=== PATIENT | female | born 1980 | race Hispanic/Latino ===

== ENCOUNTER 2018-06-03 10:50 | Outpatient (CLI) | payer OTHER ==
--- NOTE | 2018-06-03 12:29 | RAD ---
PA AND LATERAL VIEWS CHEST: HISTORY: Bronchitis. COMPARISON: Comparison is made with the exam of 06/07/2016. FINDINGS: The heart size is normal. The lungs are expanded without lobar consolidation, pneumothoraces, or ple ural effusions. Mild degenerative changes are present. IMPRESSION: No radiographic evidence of acute cardiopulmonary process. POS: OFF
== END 2018-06-03 10:51 | disposition home or self-care (01) ==
LOC: BICRAD 10:50
PROVIDERS: ATTEND Family Medicine
DX: J40 Bronchitis, not specified as acute or chronic (principal)
CPT/HCPCS: 71046

== ENCOUNTER 2019-02-28 11:06 | Inpatient (IN) | payer SELFPAY ==
[2019-02-28] MEDS ORDERED: Ketorolac Tromethamine 30 MG/ML VIAL ONE (11:48)
[2019-02-28] MEDS ORDERED: Acetaminophen 500 MG TAB ONE (11:48)
[2019-02-28] MEDS ORDERED: Ondansetron PF 4 MG/2 ML Vial ONE (11:48)
[2019-02-28] MEDS ORDERED: cefTRIAXone\\ROCEPHIN 2 GM VIAL ONE (11:48)
[2019-02-28 11:53] LABS: #Lymphocytes 1.6 thou/uL (1.20-3.40); #Monocytes 1.1 thou/uL (0.11-0.59); #Neutrophils 15.9 thou/uL (1.40-6.50); %Basophils 0.2 % (0.0-1.0); %Eosinophils 0.1 % (0.0-10.0); %Lymphocytes 8.5 % (21.0-51.0); %Monocytes 5.9 % (0.0-10.0); %Neutrophils 85.3 % (42.0-75.0); Hemoglobin 14.5 g/dL (12.0-16.0); Mean Corpuscular HGB CONC 34.4 g/dL (32.0-36.0); Mean Corpuscular Hemoglobin 30.5 pg (27.0-31.0); Mean Corpuscular Volume 88.9 fL (78.0-98.0); Mean Platelet Volume 7.7 fL (7.4-10.4); Platelet Count 311 thou/uL (130-400); RBC Distribution Width 11.5 % (11.5-14.5); Red Blood Cell (RBC) Count 4.75 mill/uL (4.20-5.40); White Blood Cell (WBC) Count 18.6 thou/uL (4.8-10.8)
[2019-02-28 12:06] LABS: BHCG - Serum Negative (NEGATIVE); Pregs Control Background? CLEAR/WHITE (CLR/WHITE); Pregs Control Bar Appear? YES (CONTROL BAR)
[2019-02-28 12:07] LABS: Bilirubin Negative (Negative); Blood, Urine Moderate (Negative); Glucose, Urine (Dipstick) Negative (Negative); Leukocyte Large (Negative); Nitrite Positive (Negative); Protein, Urine (Dipstick) 100 mg/dL (Neg-Trace); Urobilinogen 0.2 mg/dL (Less than 2)
[2019-02-28 12:10] LABS: Clarity Turbid (Clear)
[2019-02-28 12:16] LABS: Bacteria/HPF 4+ HPF (None Seen); Transitional Epithelial 0-3 HPF (None Seen); WBC/HPF Greater Than 50 HPF (0-3)
[2019-02-28 12:22] LABS: ALT (SGPT) 54 U/L (8-55); AST (SGOT) 29 U/L (5-34); Albumin 4.3 g/dL (3.5-5.0); Alkaline Phosphatase 98 U/L (40-110); Anion Gap 14 mmol/L (10-20); BUN (Urea Nitrogen) 12 mg/dL (7.0-18.7); CK (CPK) 74 U/L (29-168); Calc. Creatinine Clearance 0 mL/min (70-130); Calcium 9.3 mg/dL (7.8-10.44); Carbon Dioxide 23 mmol/L (22-29); Chloride 103 mmol/L (98-107); Estimated GFR-MDRD Greater than 90; Globulin 4.2 g/dL (2.4-3.5); Glucose 115 mg/dL (70-105); Lipase 9 U/L (8-78); Potassium 3.6 mmol/L (3.5-5.1); Protein, Total 8.5 g/dL (6.0-8.3); Sodium 136 mmol/L (136-145)
--- NOTE | 2019-02-28 12:30 | CT ---
CT abdomen and pelvis without IV contrast. Oral contrast was not administered. INDICATIONS: Abdominal pain. Left flank pain. COMPARISON: None FINDINGS: Lung bases are clear Liver, spleen, and pancreas appear unremarkable. Gallbladder is mildly distended. No pericholecystic edema. Gallstones may not be apparent on CT. Stomach and duodenum appear unremarkable. Adrenal glands appear normal. There is mild fullness of the left collecting structures. There is a tiny nonobstructing calculus in mid pole collecting structures on the left measuring 2 to 3 mm. No evidence of ureteral calculus. No calculus seen in the bladder. Findings may represent a recently passed calculus from the left side . Right kidney and right collecting structures unremarkable. Urinary bladder unremarkable. Small bowel loops are normal caliber and exhibit normal fold pattern. Appendix is identified and appears unremarkable. Colon is unremarkable. Aorta is normal caliber. No evidence of retroperitoneal or mesenteric adenopathy. Pelvic structures appear unremarkable. Subcutaneous tissues, abdominal wall, and muscular structures appear unremarkable. Osseous structures appear unremarkable. IMPRESSION: 1. Mild fullness of the left collecting structures however no evidence of ureteral calculus identifie d. Possibly recently passed calculus from the left side. 2. Tiny nonobstructing calculus from the mid pole collecting structures on the left. 3. Mildly distended gallbladder.
[2019-02-28 13:48] LABS: Amphetamine Not Detected (NotDetected); Barbiturates Screen Not Detected (NotDetected); Benzodiazepine Screen Not Detected (NotDetected); Cocaine Metabolite Screen Not Detected (NotDetected); Medtox Reader # READER 4; Methadone Not Detected (NotDetected); Methamphetamine Not Detected (NotDetected); Opiate Screen Not Detected (NotDetected); Oxycodone Screen Not Detected (NotDetected); Phencyclidine (PCP) Not Detected (NotDetected); THC/Cannabinoid Screen Not Detected (NotDetected); Tricyclic Screen Not Detected (NotDetected)
[2019-02-28 13:49] LABS: Medtox Control Line Valid? VALID (VALID)
[2019-02-28] MEDS ORDERED: Guaifenesin DM 100-10/5 ML UDCUP PO PRN (14:49)
[2019-02-28] MEDS ORDERED: Bisacodyl 10 MG SUPP PR PRN (14:49)
[2019-02-28] MEDS ORDERED: Senokot S 8.6-50 MG TAB PO PRN (14:49)
[2019-02-28] MEDS: Acetaminophen 325 MG TAB PO PRN ×2 (15:32→20:16)
[2019-02-28] MEDS: Sodium Chloride 0.9% 1,000 ML IV SCH ×2 (15:40→20:15)
[2019-02-28 16:05] VITALS: BMI 36.6
--- NOTE | 2019-02-28 16:24 | HP ---
REASON FOR ADMISSION: Sepsis, pyelonephritis. HISTORY OF PRESENTING ILLNESS: The patient gives history of having pain all over. This started last evening. She also had fever and could not sleep last night. She has been having frequent urination and it is painful to urinate as well. She developed fever, cold, and chills as well overnight. No prior history of bladder infections in the past. No complaints of chest pain, palpitation, PND, or orthopnea. No complaints of cough or expectoration. She has known history of asthma, but has not had any wheezing overnight. PAST MEDICAL AND SURGICAL HISTORY: History of asthma, which is very stable with no inhalers on a regular basis. She has given to 3 children. CURRENT MEDICATION: Tylenol, Aleve p.r.n. for muscular aches. ALLERGIES: ALLERGIC TO PENICILLIN. PERSONAL HISTORY: Does not abuse alcohol or drugs. No history of smoking. FAMILY HISTORY: Both parents are living. Mother is healthy. Father has had history of sarcoma in his left axillary area for which he has had two surgeries and is apparently in remission per the patient. She lives with her . CODE STATUS: Full. Power of attorney lawyer is her . REVIEW OF SYSTEMS: CONSTITUTIONAL: Negative for weight loss or gain, ability to conduct usual activities. SKIN: Negative for rash, itching. EYES: Negative for double vision, pain. ENT/MOUTH: Negative for nose bleeding, neck stiffness, pain, tenderness. CARDIOVASCULAR: Negative for palpitations, dyspnea on exertion, orthopnea. RESPIRATORY: Negative for shortness of breath, wheezing, cough, hemoptysis, fever or night sweats. GASTROINTESTINAL: Negative for poor appetite, abdominal pain, heartburn, nausea , vomiting, constipation, or diarrhea. GENITOURINARY: Negative for urgency, frequency, dysuria, nocturia. MUSCULOSKELETAL: Negative for pain, swelling. NEUROLOGIC/PSYCHIATRIC: Negative for anxiety, depression. ALLERGY/IMMUNOLOGIC: Negative for skin rash, bleeding tendency. PHYSICAL EXAMINATION: GENERAL: The patient is a 38-year-old female who is currently not in any acute distress. VITAL SIGNS: Blood pressure 121/94, pulse 140 per minute, respiratory rate 20 per minute, temperature 99.8 degrees Fahrenheit, saturating 96% on room air. NECK: Supple. No elevated JVD. HEENT: Eyes; extraocular muscles intact. Pupils reacting to light. Oral cavity, mucous membranes are dry. No exudates or congestion. CARDIOVASCULAR SYSTEM: S1 and S2 heard. Regular rhythm. Tachycardic. RESPIRATORY SYSTEM: Air entry 1+ bilateral. No rales or rhonchi. ABDOMEN: Soft. Bowel sounds heard. There is left CV angle tenderness. No rigidity or guarding. EXTREMITIES: No peripheral edema or calf tenderness. VASCULAR SYSTEM: Peripheral pulses 2+ bilateral. No ischemic ulcerations or gangrene. CENTRAL NERVOUS SYSTEM: No gross focal deficits noted. The patient is alert, awake, and oriented well. PSYCHIATRIC SYSTEM: The patient's mood is euthymic. No hallucinations or delusions. LABORATORY DATA: CT abdomen and pelvis without IV contrast done shows fullness of left collecting structures, however, there is no evidence of ureteral calculus, likely the patient might have passed a calculus on the left side. There is tiny nonobstructing calculus from the mid pole collecting structures on the left. Mildly distended gallbladder. No pericholecystic fluid was seen. UA is strongly positive for UTI. Urine drug screen is negative. Serum test is negative. BUN 12, creatinine 0.7, serum glucose 115. Liver enzymes within normal limits. Total bilirubin 1.0. Albumin is 4.3. Lipase 9. White count of 18, H and H of 14 and 42, platelet count 311 with 85% neutrophils. CLINICAL IMPRESSION AND PLAN: The patient will be admitted to medical floor for sepsis, left-sided pyelonephritis with urinary tract infection. It is unclear if the patient passed stone. No prior history of ureteric colic or passing stone in the past. Blood and urine cultures have been obtained in the ER. We will place her on ceftriaxone 1 g IV daily along with normal saline at 100 mL/hr. The patient has received 30 mL/kg sepsis protocol IV fluid resuscitation in the ER. Motrin p.r.n. for pain. Morphine p.r.n. for pain. We will obtain an echo with 2D Doppler in view of persistent tachycardia despite fluid resuscitation, likely due to current sepsis. We will closely monitor this. The patient also weighs nearly 85 kg and likely has obesity. We will await urine cultures for definitive placement of antibiotics. Job ID: [id number] [facility]
[2019-02-28] MEDS: Ibuprofen 600 MG TAB PO PRN (17:24)
[2019-02-28] MEDS: Morphine 2 MG/ML SYRINGE SLOW IVP PRN ×2 (18:32→22:25)
[2019-02-28] MEDS: Famotidine 20 MG TAB PO SCH (20:16)
[2019-03-01] MEDS: Acetaminophen 325 MG TAB PO PRN ×3 (01:43→13:57)
[2019-03-01] MEDS: Morphine 2 MG/ML SYRINGE SLOW IVP PRN ×2 (01:44→18:02)
[2019-03-01 06:10] LABS: Anion Gap 10 mmol/L (10-20); BUN (Urea Nitrogen) 7 mg/dL (7.0-18.7); Calc. Creatinine Clearance 190 mL/min (70-130); Calcium 8.5 mg/dL (7.8-10.44); Carbon Dioxide 25 mmol/L (22-29); Chloride 106 mmol/L (98-107); Estimated GFR-MDRD Greater than 90; Glucose 115 mg/dL (70-105); Potassium 3.7 mmol/L (3.5-5.1); Sodium 137 mmol/L (136-145)
[2019-03-01 06:24] LABS: Band 3 % (5-11); Lymphocytes 12 % (21-51); MDiff Complete? YES; Mean Corpuscular Hemoglobin 30.7 pg (27.0-31.0); Mean Corpuscular Volume 90.3 fL (78.0-98.0); Mean Platelet Volume 7.9 fL (7.4-10.4); Monocytes 8 % (0-10); Neutrophil 76 % (42-75); Platelet Count 259 thou/uL (130-400); Platelet Morphology Comment Appears Adequate; RBC Distribution Width 11.5 % (11.5-14.5); RBC Morphology Normal; Reactive Lymphocytes 1 % (0-10); Red Blood Cell (RBC) Count 4.23 mill/uL (4.20-5.40); White Blood Cell (WBC) Count 21.9 thou/uL (4.8-10.8)
[2019-03-01] MEDS: Enoxaparin Sodium 40 MG/0.4 ML SYRINGE SC SCH (08:18)
[2019-03-01] MEDS: Famotidine 20 MG TAB PO SCH ×2 (08:19→19:46)
[2019-03-01] MEDS ORDERED: FLU VACC QS2019-20(6MOS UP)/PF 60 MCG/0.5 ML SYRINGE IM ONE (09:00)
[2019-03-01] MEDS: Ibuprofen 600 MG TAB PO PRN ×2 (09:51→19:43)
[2019-03-01] MEDS ORDERED: ISOVUE-370 76%-LOCM 1 ML ONE (09:59)
[2019-03-01] MEDS ORDERED: cefTRIAXone\\ROCEPHIN 1 GM in Sodium Chloride 0.9% 100 ML IVPB SCH (12:00)
[2019-03-01] MEDS: Sodium Chloride 0.9% 1,000 ML IV SCH ×2 (12:03→19:44)
--- NOTE | 2019-03-01 13:50 | PDOC.HOSPP ---
- Subjective Encounter Date: 03/01/19 Encounter Time: 08:00 Subjective: still has left cva angle tenderness, but overall feels better this am is amb in hallway per patient no chest pain, has palp and headache - Objective Vital Signs & Weight: Vital Signs (12 hours) Temp Pulse Resp BP BP Pulse Ox 03/01/19 11:49 97.5 F L 106 H 20 121/83 96 03/01/19 08:19 94 L 03/01/19 08:00 101.1 F H 121 H 22 H 124/86 94 L 03/01/19 04:00 98.4 F 121 H 24 H 124/83 92 L Weight Weight 213 lb 9.6 oz I&O: 02/28/19 03/01/19 03/02/19 06:59 06:59 06:59 Intake Total 2013 Balance 2013 Result Diagrams: 03/01/19 05:10 03/01/19 05:10 Hospitalist ROS - Medication Medications: Active Medications Generic Name Dose Route Start Last Admin Trade Name Freq PRN Reason Stop Dose Admin Acetaminophen 650 mg 02/28/19 14:49 03/01/19 08:18 Tylenol PO 650 mg Q4H PRN Administration Headache/Fever/Mild Pain (1-3) Enoxaparin Sodium 40 mg 03/01/19 09:00 03/01/19 08:18 Lovenox SC 40 mg 0900 LEVY Administration Famotidine 20 mg 02/28/19 21:00 03/01/19 08:19 Pepcid PO 20 mg BID LEVY Administration Sodium Chloride 1,000 mls @ 100 mls/hr 02/28/19 14:49 03/01/19 12:03 Normal Saline 0.9% IV 1,000 mls .Q10H LEVY Administration Ibuprofen 600 mg 02/28/19 14:50 03/01/19 09:51 Motrin PO 600 mg Q8H PRN Administration Pain Morphine Sulfate 2 mg 02/28/19 14:50 03/01/19 01:44 Morphine SLOW IVP 2 mg Q4H PRN Administration Pain Sodium Chloride 10 ml 03/01/19 09:00 03/01/19 12:02 Flush - Normal Saline IVF Not Given Q12HR LEVY - Exam General Appearance: NAD, awake alert Eye: anicteric sclera ENT: no oropharyngeal lesions, moist mucosa Neck: supple, no JVD Heart: no murmur, no gallops Heart - other findings: tachy+ Respiratory: no wheezes, no rales, rhonchi Gastrointestinal: soft, non-distended, normal bowel sounds, no guarding, no rigidity Gastrointestinal - other findings: left cva angle tenderness Extremities: no cyanosis, no edema Neurological: cranial nerve grossly intact, no focal deficits Psychiatric: normal affect, A&O x 3 Hosp A/P (1) Sepsis Code(s): A41.9 - SEPSIS, UNSPECIFIED ORGANISM Status: Acute Qualifiers: Sepsis type: Escherichia coli (2) E coli bacteremia Code(s): R78.81 - BACTEREMIA Status: Acute (3) Pyelonephritis of left kidney Code(s): N12 - TUBULO-INTERSTITIAL NEPHRITIS, NOT SPCF ACUTE OR CHRONIC Status: Acute (4) Obesity (BMI 30-39.9) Code(s): E66.9 - OBESITY, UNSPECIFIED Status: Chronic - Plan is on meropenem, await full culture results wbc is still climbing up recieved full fluid resuscitation for sepsis and is currently at 100mls/hr echo for lv function, persistent tachy (likely due to sepsis), CTA to r/o PE hemostable otherwise to amb in hallway as tolerated gave full updates to and patient at bedside
[2019-03-01] MEDS: MEROPENEM 1 GM/50 ML 1 GM in Premix Bag 1 BAG IVPB SCH ×2 (13:58→21:26)
--- NOTE | 2019-03-01 15:11 | CT ---
CT ANGIOGRAM THORAX WITH CONTRAST: (CTA pulmonary angiogram) DATE: 03/01/2019 HISTORY: 38-year-old female with dyspnea TECHNIQUE: IV injection of iodinated contrast. Scan acquisition timing attempted to coincide with iodinated contrast bolus reaching maximal density in pulmonary arteries. 3-D MIP reconstructions. FINDINGS: Pulmonary thromboembolism: None. Lungs: Clear. Pneumothorax: None. Pleural effusion: None. Thoracic aorta: No aneurysm or dissection. Mediastinum: No lymphadenopathy or other mass. [place]: No lymphadenopathy or other mass. IMPRESSION: Normal.
[2019-03-01] MEDS: Ketorolac Tromethamine 30 MG/ML VIAL IVP PRN (21:26)
[2019-03-02] MEDS: Sodium Chloride 0.9% 1,000 ML IV SCH ×2 (05:37→18:20)
[2019-03-02 05:38] LABS: #Eosinphils 0.1 thou/uL (0.0-0.7); #Lymphocytes 2.4 thou/uL (1.20-3.40); #Monocytes 1.8 thou/uL (0.11-0.59); #Neutrophils 14.8 thou/uL (1.40-6.50); %Basophils 0.1 % (0.0-1.0); %Eosinophils 0.3 % (0.0-10.0); %Lymphocytes 12.6 % (21.0-51.0); %Monocytes 9.6 % (0.0-10.0); %Neutrophils 77.4 % (42.0-75.0); Mean Corpuscular HGB CONC 34.2 g/dL (32.0-36.0); Mean Corpuscular Hemoglobin 30.7 pg (27.0-31.0); Mean Platelet Volume 7.9 fL (7.4-10.4); Platelet Count 265 thou/uL (130-400); RBC Distribution Width 11.4 % (11.5-14.5); Red Blood Cell (RBC) Count 4.24 mill/uL (4.20-5.40); White Blood Cell (WBC) Count 19.1 thou/uL (4.8-10.8)
[2019-03-02] MEDS: MEROPENEM 1 GM/50 ML 1 GM in Premix Bag 1 BAG IVPB SCH (05:38)
[2019-03-02 05:59] LABS: Anion Gap 11 mmol/L (10-20); BUN (Urea Nitrogen) 7 mg/dL (7.0-18.7); Calc. Creatinine Clearance 187 mL/min (70-130); Calcium 8.8 mg/dL (7.8-10.44); Carbon Dioxide 24 mmol/L (22-29); Chloride 106 mmol/L (98-107); Estimated GFR-MDRD Greater than 90; Glucose 97 mg/dL (70-105); Potassium 3.6 mmol/L (3.5-5.1); Sodium 137 mmol/L (136-145)
[2019-03-02] MEDS: Famotidine 20 MG TAB PO SCH ×2 (08:56→20:24)
[2019-03-02] MEDS: Enoxaparin Sodium 40 MG/0.4 ML SYRINGE SC SCH (08:56)
[2019-03-02] MEDS: Ketorolac Tromethamine 30 MG/ML VIAL IVP PRN ×2 (11:27→22:06)
[2019-03-02] MEDS: Acetaminophen 325 MG TAB PO PRN (11:27)
--- NOTE | 2019-03-02 12:26 | PDOC.HOSPP ---
- Subjective Encounter Date: 03/02/19 Encounter Time: 12:24 Subjective: Patient seen and examined for Sepsis. Left flank pain +. No new complaints. No overnight events - Objective Vital Signs & Weight: Vital Signs (12 hours) Temp Pulse Resp BP Pulse Ox 03/02/19 12:20 98.4 F 107 H 16 120/81 95 03/02/19 07:24 98.4 F 98 20 133/85 94 L 03/02/19 04:10 98.5 F 96 16 123/81 96 Weight Weight 213 lb 9.6 oz I&O: 03/01/19 03/02/19 03/03/19 06:59 06:59 06:59 Intake Total 2013 1200 Balance 2013 1200 Result Diagrams: 03/02/19 05:14 03/02/19 05:14 Radiology Reviewed by me: Yes (CTA - neg) Hospitalist ROS - Review of Systems Respiratory: denies: cough, dry, shortness of breath, hemoptysis, SOB with excertion, pleuritic pain, sputum, wheezing, other Cardiovascular: denies: chest pain, palpitations, orthopnea, paroxysmal noc. dyspnea, edema, light headedness, other - Medication Medications: Active Medications Generic Name Dose Route Start Last Admin Trade Name Freq PRN Reason Stop Dose Admin Acetaminophen 650 mg 02/28/19 14:49 03/02/19 11:27 Tylenol PO 650 mg Q4H PRN Administration Headache/Fever/Mild Pain (1-3) Enoxaparin Sodium 40 mg 03/01/19 09:00 03/02/19 08:56 Lovenox SC 40 mg 0900 LEVY Administration Famotidine 20 mg 02/28/19 21:00 03/02/19 08:56 Pepcid PO 20 mg BID LEVY Administration Sodium Chloride 1,000 mls @ 100 mls/hr 02/28/19 14:49 03/02/19 05:37 Normal Saline 0.9% IV 1,000 mls .Q10H LEVY Administration Ibuprofen 600 mg 02/28/19 14:50 03/01/19 19:43 Motrin PO 600 mg Q8H PRN Administration Pain Ketorolac Tromethamine 30 mg 03/01/19 21:22 03/02/19 11:27 Toradol IVP 03/06/19 21:23 30 mg Q12H PRN Administration Pain Morphine Sulfate 2 mg 02/28/19 14:50 03/01/19 18:02 Morphine SLOW IVP 2 mg Q4H PRN Administration Pain Senna/Docusate Sodium 2 tab 02/28/19 14:49 03/02/19 05:37 Senokot S PO 2 tab BIDPRN PRN Administration Constipation Sodium Chloride 10 ml 03/01/19 09:00 03/02/19 11:09 Flush - Normal Saline IVF Not Given Q12HR LEVY Sodium Chloride 10 ml 03/01/19 08:58 03/01/19 18:03 Flush - Normal Saline IVF 10 ml PRN PRN Administration Saline Flush - Exam General Appearance: NAD Neck: supple, no JVD Heart: RRR, no gallops Respiratory: CTAB, no wheezes, no rales Gastrointestinal: soft, non-distended, normal bowel sounds Gastrointestinal - other findings: Left CVA tenderness Hosp A/P - Plan DVT proph w/lovenox, DVT proph w/SCDs Severe Sepsis due to Ecoli Pyelonephritis with bacteremia Obesity BMI 36.7 Renal calculi Sinus tachycardia due to #1 PLAN: Change Meropenem to IV Ceftriaxone AM labs Cont IVF Cont other meds
[2019-03-02] MEDS: cefTRIAXone\\ROCEPHIN 2 GM in Sodium Chloride 0.9% 100 ML IVPB SCH (13:06)
[2019-03-02] MEDS: Ibuprofen 600 MG TAB PO PRN (16:25)
[2019-03-02] MEDS: Morphine 2 MG/ML SYRINGE SLOW IVP PRN (20:24)
[2019-03-02] MEDS ORDERED: Ketorolac Tromethamine 30 MG/ML VIAL IVP PRN (20:55)
[2019-03-03] MEDS: Sodium Chloride 0.9% 1,000 ML IV SCH ×2 (03:47→14:45)
[2019-03-03] MEDS: Ketorolac Tromethamine 30 MG/ML VIAL IVP PRN ×3 (05:22→16:52)
[2019-03-03 06:08] LABS: #Basophils 0.1 thou/uL (0.0-0.2); #Eosinphils 0.1 thou/uL (0.0-0.7); #Lymphocytes 2.3 thou/uL (1.20-3.40); #Monocytes 0.9 thou/uL (0.11-0.59); #Neutrophils 8.7 thou/uL (1.40-6.50); %Basophils 0.6 % (0.0-1.0); %Eosinophils 0.7 % (0.0-10.0); %Lymphocytes 19.2 % (21.0-51.0); %Monocytes 7.1 % (0.0-10.0); %Neutrophils 72.3 % (42.0-75.0); Hemoglobin 13.1 g/dL (12.0-16.0); Mean Corpuscular HGB CONC 32.2 g/dL (32.0-36.0); Mean Corpuscular Hemoglobin 28.7 pg (27.0-31.0); Mean Platelet Volume 7.9 fL (7.4-10.4); Platelet Count 328 thou/uL (130-400); RBC Distribution Width 11.3 % (11.5-14.5); Red Blood Cell (RBC) Count 4.56 mill/uL (4.20-5.40)
[2019-03-03 06:28] LABS: ALT (SGPT) 31 U/L (8-55); AST (SGOT) 21 U/L (5-34); Albumin 3.7 g/dL (3.5-5.0); Alkaline Phosphatase 90 U/L (40-110); Anion Gap 13 mmol/L (10-20); BUN (Urea Nitrogen) 8 mg/dL (7.0-18.7); Bilirubin, Total 0.2 mg/dL (0.2-1.2); Calc. Creatinine Clearance 179 mL/min (70-130); Calcium 8.9 mg/dL (7.8-10.44); Carbon Dioxide 20 mmol/L (22-29); Chloride 109 mmol/L (98-107); Estimated GFR-MDRD Greater than 90; Globulin 3.9 g/dL (2.4-3.5); Glucose 96 mg/dL (70-105); Potassium 3.8 mmol/L (3.5-5.1); Protein, Total 7.6 g/dL (6.0-8.3); Sodium 138 mmol/L (136-145)
[2019-03-03] MEDS: Saccharomyces boulardii 250 MG CAP PO SCH (10:11)
[2019-03-03] MEDS: Enoxaparin Sodium 40 MG/0.4 ML SYRINGE SC SCH (10:11)
[2019-03-03] MEDS: Famotidine 20 MG TAB PO SCH ×2 (10:11→19:39)
--- NOTE | 2019-03-03 10:52 | PDOC.HOSPP ---
- Subjective Encounter Date: 03/03/19 Encounter Time: 10:50 Subjective: Patient seen and examined for Sepsis. Flank pain improving. Afebrile. No new complaints. No overnight events - Objective Vital Signs & Weight: Vital Signs (12 hours) Temp Pulse Resp BP BP Pulse Ox 03/03/19 07:54 98.1 F 104 H 18 125/86 95 03/03/19 05:40 98.1 F 100 20 134/87 96 03/03/19 00:00 97.9 F 98 18 132/79 97 Weight Weight 213 lb 9.6 oz I&O: 03/02/19 03/03/19 03/04/19 06:59 06:59 06:59 Intake Total 1200 1944 Balance 1200 1944 Result Diagrams: 03/03/19 05:33 03/03/19 05:33 Additional Labs: Microbiology 02/28/19 11:40 Venous blood - Left Hand Blood Culture - Final Escherichia coli 02/28/19 11:40 Urine clean catch Urine Culture - Final Escherichia coli Hospitalist ROS - Review of Systems Respiratory: denies: cough, dry, shortness of breath, hemoptysis, SOB with excertion, pleuritic pain, sputum, wheezing, other Cardiovascular: denies: chest pain, palpitations, orthopnea, paroxysmal noc. dyspnea, edema, light headedness, other - Medication Medications: Active Medications Generic Name Dose Route Start Last Admin Trade Name Freq PRN Reason Stop Dose Admin Acetaminophen 650 mg 02/28/19 14:49 03/02/19 11:27 Tylenol PO 650 mg Q4H PRN Administration Headache/Fever/Mild Pain (1-3) Enoxaparin Sodium 40 mg 03/01/19 09:00 03/03/19 10:11 Lovenox SC 40 mg 0900 LEVY Administration Famotidine 20 mg 02/28/19 21:00 03/03/19 10:11 Pepcid PO 20 mg BID LEVY Administration Sodium Chloride 1,000 mls @ 100 mls/hr 02/28/19 14:49 03/03/19 03:47 Normal Saline 0.9% IV 03/03/19 20:00 Not Given .Q10H LEVY Ceftriaxone Sodium 2 gm/ 100 mls @ 200 mls/hr 03/02/19 13:00 03/02/19 13:06 Sodium Chloride IVPB 100 mls Q24HR LEVY Administration Ibuprofen 600 mg 02/28/19 14:50 03/02/19 16:25 Motrin PO 600 mg Q8H PRN Administration Pain Ketorolac Tromethamine 15 mg 03/02/19 21:00 03/03/19 10:15 Toradol IVP 03/07/19 20:56 15 mg Q6H PRN Administration Pain Morphine Sulfate 2 mg 02/28/19 14:50 03/02/19 20:24 Morphine SLOW IVP 2 mg Q4H PRN Administration Pain Saccharomyces Boulardii 250 mg 03/03/19 09:00 03/03/19 10:11 Florastor PO 250 mg DAILY LEVY Administration Senna/Docusate Sodium 2 tab 02/28/19 14:49 03/02/19 05:37 Senokot S PO 2 tab BIDPRN PRN Administration Constipation Sodium Chloride 10 ml 03/01/19 09:00 03/02/19 20:24 Flush - Normal Saline IVF 10 ml Q12HR LEVY Administration Sodium Chloride 10 ml 03/01/19 08:58 03/01/19 18:03 Flush - Normal Saline IVF 10 ml PRN PRN Administration Saline Flush - Exam General Appearance: NAD Neck: supple, no JVD Heart: RRR, no gallops Respiratory: CTAB, no rales Gastrointestinal: soft, non-tender, normal bowel sounds, tender to palpation ( left flank) Extremities: no edema Hosp A/P - Plan DVT proph w/SCDs Severe Sepsis due to Ecoli Pyelonephritis with bacteremia Obesity BMI 36.7 Renal calculi Sinus tachycardia due to #1 PLAN: Cont IV Ceftriaxone CBC in AM DC home in AM if WBC is normal DC IVF after this bag Cont other meds
[2019-03-03] MEDS: cefTRIAXone\\ROCEPHIN 2 GM in Sodium Chloride 0.9% 100 ML IVPB SCH (13:21)
[2019-03-03] MEDS: Acetaminophen 325 MG TAB PO PRN (22:37)
[2019-03-04] MEDS: Acetaminophen 325 MG TAB PO PRN ×2 (06:00→13:55)
[2019-03-04 06:31] LABS: #Basophils 0.1 thou/uL (0.0-0.2); #Eosinphils 0.2 thou/uL (0.0-0.7); #Lymphocytes 2.8 thou/uL (1.20-3.40); #Neutrophils 7.5 thou/uL (1.40-6.50); %Basophils 0.6 % (0.0-1.0); %Eosinophils 2.1 % (0.0-10.0); %Lymphocytes 24.2 % (21.0-51.0); %Monocytes 8.9 % (0.0-10.0); %Neutrophils 64.2 % (42.0-75.0); Hemoglobin 13.7 g/dL (12.0-16.0); Mean Corpuscular HGB CONC 33.3 g/dL (32.0-36.0); Mean Corpuscular Hemoglobin 30.3 pg (27.0-31.0); Mean Platelet Volume 8.2 fL (7.4-10.4); Platelet Count 329 thou/uL (130-400); RBC Distribution Width 11.5 % (11.5-14.5); Red Blood Cell (RBC) Count 4.54 mill/uL (4.20-5.40); White Blood Cell (WBC) Count 11.6 thou/uL (4.8-10.8)
[2019-03-04 07:46] VITALS: BP 122/79; TEMP 97.8
[2019-03-04] MEDS: Saccharomyces boulardii 250 MG CAP PO SCH (09:48)
[2019-03-04] MEDS: Famotidine 20 MG TAB PO SCH (09:48)
[2019-03-04] MEDS: cefTRIAXone\\ROCEPHIN 2 GM in Sodium Chloride 0.9% 100 ML IVPB SCH (13:04)
[2019-03-04] MEDS ORDERED: Ciprofloxacin 500 MG TAB PO SCH ×2 (14:30→20:00)
--- NOTE | 2019-03-05 02:34 | DIS ---
DATE OF ADMISSION: 02/28/2019 DATE OF DISCHARGE: 03/04/2019 PRIMARY CARE PROVIDER: Dr. Jodi Tavares. DISCHARGE DIAGNOSES: 1. Severe sepsis. 2. Severe sepsis secondary to E coli pyelonephritis with bacteremia. 3. Nephrolithiasis. CONDITION OF PATIENT ON THE DAY OF DISCHARGE: Stable. I assessed Ms. Sung on the day of discharge. She denies any chest pain or shortness of breath. Vital signs are stable. S1 and S2 are heard, regular. Lungs are clear to auscultation bilaterally. POST-DISCHARGE FOLLOWUP: The patient is advised to follow up with primary care provider in 3 days' time. DISCHARGE MEDICATIONS: 1. Ciprofloxacin 500 mg 2 times a day for 7 more days. 2. Acetaminophen p.r.n. 3. Naproxen p.r.n. HOSPITAL COURSE: Ms. Sung is a pleasant 38-year-old lady who was admitted to [facility] for severe sepsis secondary to pyelonephritis on 02/28/2019. She was also tachycardic at the time of admission. She underwent CT angiogram of the chest, which did not show any evidence of pulmonary embolism. CT scan of the abdomen and pelvis done at the time of admission showed mild fullness of the left collecting structures, however, no evidence of ureteral calculus, possibly recently passed calculus from the left side. She had a tiny nonobstructing calculus from the midpole collecting structures on the left, and mildly distended gallbladder. She was treated with intravenous antibiotics. 1/2 blood cultures and urine culture grew Escherichia coli that was resistant to ampicillin and Bactrim, but sensitive to amikacin, cefepime, cefoxitin, ceftazidime, ceftriaxone, ciprofloxacin, gentamicin, levofloxacin, meropenem, nitrofurantoin, Zosyn, and tobramycin. She is being switched to ciprofloxacin at the time of discharge. She is advised to follow up with primary care provider for further management. She also had 2D echocardiogram, which showed left ventricular ejection fraction of 55% to 60%, mild mitral regurgitation, and mild tricuspid regurgitation. On the day of discharge, she has white count of 11,600, hemoglobin 13.7, and platelet count 329,000. Many thanks for allowing me to participate in your patient's care. Please feel free to contact me with any questions or concerns. DISCHARGE DESTINATION: Home. TIME SPENT: Total amount of time spent coordinating this discharge: 32 minutes. Job ID: [id number]
== END 2019-03-04 17:03 | disposition home or self-care (01) | DRG 872 ==
LOC: ERS 11:06 → T4-B 15:23
PROVIDERS: ADMIT Internal Medicine; ATTEND Internal Medicine
DX: A41.51 Sepsis due to Escherichia coli [E. coli] (principal); N12 Tubulo-interstitial nephritis, not specified as acute or chronic; R65.20 Severe sepsis without septic shock; N20.0 Calculus of kidney; J45.909 Unspecified asthma, uncomplicated; E66.9 Obesity, unspecified; Z88.0 Allergy status to penicillin; Z68.36 Body mass index [BMI] 36.0-36.9, adult
CPT/HCPCS: 36415; 71275; 74176; 80048; 80053; 80306; 81003; 81015; 82550; 83605; 83690; 83735; 84703; 85025; 87040; 87077; 87086; 87149; 87186; 90471; 90686; 93005; 93306; 94760; 96365; 96367; 96375; G0008; J0696; J1650; J1885; J2185; J2270; J2405; J3370; J3490

== ENCOUNTER 2022-07-25 15:43 | Outpatient (CLI) | payer MEDICAID | END 2022-07-25 15:44 | disposition home or self-care (01) | LOC: BICMAMMO 15:43 | PROVIDERS: ATTEND Family Medicine | DX: Z12.31 Encounter for screening mammogram for malignant neoplasm of breast (principal) | CPT/HCPCS: 77067 ==